=== PATIENT | male | born 1955 | race Caucasian/White ===

== ENCOUNTER 2017-11-13 12:58 | Emergency (ER) | payer OTHER ==
[~2017-11-13 12:58] MED LIST: Sodium Chloride Irrig Solution 250 ML BOT ONE
[2017-11-13] MEDS ORDERED: Adacel (T-DAP) 0.5 ML VIAL ONE (14:09)
[2017-11-13] MEDS ORDERED: Lidocaine 2% w/Epinephrine 1:200K 20 ML VIAL ONE (14:18)
[2017-11-13] MEDS ORDERED: Lidocaine 1% w/Epinephrine 1:100K 20 ML VIAL ONE (14:19)
== END 2017-11-13 15:00 | disposition home or self-care (01) ==
LOC: MADERS 12:58
DX: S81.851A Open bite, right lower leg, initial encounter (principal); S81.811A Laceration without foreign body, right lower leg, initial encounter; J44.9 Chronic obstructive pulmonary disease, unspecified; F17.210 Nicotine dependence, cigarettes, uncomplicated; F32.9 Major depressive disorder, single episode, unspecified; W54.0XXA Bitten by dog, initial encounter
CPT/HCPCS: 12001; 90471; 90715; J2001